=== PATIENT | female | born 1990 ===

== ENCOUNTER 2023-06-07 06:31 | Inpatient (IN) | payer OTHER ==
[2023-06-07] MEDS ORDERED: DEXTROSE 5%-LACTATED RINGERS 1,000 ML IV ONE (07:20)
[2023-06-07] MEDS ORDERED: AMPICILLIN SODIUM 2 GM VIAL ONE (07:56)
[2023-06-07] MEDS ORDERED: AMPICILLIN - 2 GM in SODIUM CHLORIDE 100 ML IVPB ONE (08:25)
[2023-06-07 09:48] VITALS: BMI 39.9
[2023-06-07 11:23] LABS: BASO % 1.1 % (0-2.0); EOS % 0.8 % (0-4.5); HEMATOCRIT 32.8 % (32.4-45.2); HEMOGLOBIN 10.6 GM/dL (10.7-15.3); LYMPH % 27.9 % (8-40); MCH 24.2 pg (25.7-33.7); MCHC 32.2 g/dl (32.0-36.0); MEAN CELL VOLUME 75.2 fl (80-96); MEAN PLT VOLUME 7.8 fl (7.5-11.1); MONO % 2.9 % (3.8-10.2); NEUT % 67.3 % (42.8-82.8); PLATELET COUNT 377 10^3/uL (134-434); RBC 4.36 M/mm3 (3.60-5.2); RDW 17.4 % (11.6-15.6)
[2023-06-07 11:29] LABS: INR 0.94 (0.83-1.09); PROTHROMBIN TIME (PATIENT) 10.9 SEC (9.7-13.0)
[2023-06-07 11:31] LABS: ACTIVATED PTT 25.6 SECONDS (25.2-36.5)
[2023-06-07 12:17] LABS: BLOOD UREA NITROGEN 12.4 mg/dL (7-18); CALCIUM 8.8 mg/dL (8.5-10.1)
[2023-06-07 12:20] LABS: CREATININE 0.7 mg/dL (0.55-1.3)
[2023-06-07] MEDS ORDERED: AMPICILLIN SODIUM 1 GM VIAL ONE ×3 (12:33→19:59)
[2023-06-07] MEDS: AMPICILLIN - 1 GM in SODIUM CHLORIDE 100 ML IVPB SCH ×3 (12:40→20:00)
[2023-06-07 13:12] LABS: HIV INTERPRETATION NEGATIVE (NEGATIVE)
[2023-06-07] MEDS: ELECTROLYTE-148 SOLN 1,000 ML IV SCH (15:50)
[2023-06-07] MEDS ORDERED: OXYTOCIN 30 UNITS in 0.9% NS 30 UNIT/500 ML INFUS.BAG IVPB ONE (19:59)
[2023-06-07] MEDS ORDERED: OXYTOCIN 30 UNITS in 0.9% NS 30 UNIT/500 ML INFUS.BAG IVPB SCH (20:30)
[2023-06-07] MEDS ORDERED: FENTANYL/BUPIVACAINE/NS/PF - PCEA - 50 ML DISP.SYRIN EP ONE (21:29)
[2023-06-07] MEDS ORDERED: NALOXONE HCL 0.4 MG/ML VIAL IVPUSH PRN (21:59)
[2023-06-07] MEDS ORDERED: FENTANYL/BUPIVACAINE/NS/PF - PCEA - 50 ML DISP.SYRIN EP SCH (22:00)
[2023-06-07] MEDS ORDERED: OXYTOCIN 20 UNITS in 0.9% NS 20 UNIT/1,000 ML INFUS.BAG IV ONE (23:39)
[2023-06-08] MEDS ORDERED: AMPICILLIN SODIUM 1 GM VIAL ONE (00:21)
[2023-06-08] MEDS: AMPICILLIN - 1 GM in SODIUM CHLORIDE 100 ML IVPB SCH (00:25)
[2023-06-08] MEDS ORDERED: BISACODYL 10 MG SUPP.RECT RC PRN (00:47)
[2023-06-08] MEDS ORDERED: BENZOCAINE 28 GM HEMORRHOIDAL OINTMENT TP PRN (00:47)
[2023-06-08] MEDS ORDERED: METHYLERGONOVINE MALEATE 0.2 MG/1 ML AMP IM PRN (00:47)
[2023-06-08] MEDS ORDERED: oxyCODONE HCL 5 MG TABLET PO PRN (00:47)
[2023-06-08] MEDS ORDERED: ACETAMINOPHEN 325 MG TABLET (FP) PO PRN (00:47)
[2023-06-08] MEDS ORDERED: WITCH HAZEL 50% (TUCKS) 40 PAD/JAR PAD TP PRN (00:47)
[2023-06-08] MEDS ORDERED: BENZOCAINE 20% 57 GM BOTTLE TP PRN (00:47)
[2023-06-08] MEDS ORDERED: OXYTOCIN 20 UNITS in 0.9% NS 20 UNIT/1,000 ML INFUS.BAG IV SCH (01:00)
[2023-06-08] MEDS: IBUPROFEN 600 MG TABLET (FP) PO PRN ×3 (05:56→18:17)
[2023-06-08 08:46] LABS: BASO % 0.7 % (0-2.0); EOS % 0.3 % (0-4.5); HEMATOCRIT 33.7 % (32.4-45.2); LYMPH % 18.6 % (8-40); MCH 24.4 pg (25.7-33.7); MCHC 32.5 g/dl (32.0-36.0); MEAN CELL VOLUME 75.1 fl (80-96); MEAN PLT VOLUME 7.3 fl (7.5-11.1); MONO % 3.8 % (3.8-10.2); NEUT % 76.6 % (42.8-82.8); PLATELET COUNT 357 10^3/uL (134-434); RBC 4.49 M/mm3 (3.60-5.2); RDW 17.2 % (11.6-15.6); WHITE BLOOD COUNT 13.8 K/mm3 (4.0-10.0)
[2023-06-08] MEDS: FERROUS SO4 325 MG TABLET (FP) PO SCH ×2 (08:51→18:17)
[2023-06-08] MEDS: PRENATAL VITAMINS W/ FOLIC ACID TABLET (FP) PO SCH (10:00)
[2023-06-08 14:03] LABS: POC NITRAZINE POS
[2023-06-08] MEDS: ELECTROLYTE-148 SOLN 1,000 ML IV SCH (19:56)
[2023-06-09] MEDS: FERROUS SO4 325 MG TABLET (FP) PO SCH (08:26)
[2023-06-09] MEDS: IBUPROFEN 600 MG TABLET (FP) PO PRN (08:26)
[2023-06-09] MEDS: PRENATAL VITAMINS W/ FOLIC ACID TABLET (FP) PO SCH (10:49)
[2023-06-09 11:21] VITALS: BP 120/75; PULSE 88; RESP 17; TEMP 97.9
[2023-06-09] MEDS ORDERED: SENNOSIDES/DOCUSATE COMBO (SENNA PLUS) TABLET (UD) PO PRN (22:00)
== END 2023-06-09 15:55 | disposition home or self-care (01) | DRG 807 ==
LOC: UNDOADMIN 06:31 → JLDR 06:31 → J3W 06-08 03:30
PROVIDERS: ADMIT Obstetrics & Gynecology; ATTEND Obstetrics & Gynecology
PROC: 10E0XZZ Delivery of Products of Conception, External Approach (ICD-10-PCS; principal; 2023-06-08)
PROC: 0HQ9XZZ Repair Perineum Skin, External Approach (ICD-10-PCS; 2023-06-08)
DX: O69.1XX0 Labor and delivery complicated by cord around neck, with compression, not applicable or unspecified (principal); O70.0 First degree perineal laceration during delivery; Z37.0 Single live birth; Z3A.39 39 weeks gestation of pregnancy
CPT/HCPCS: 36415; 80048; 83986-QW; 85025; 85610; 85730; 86780; 86850; 86900; 86901; 87389